=== PATIENT | male | born 1990 | race Caucasian/White ===

== ENCOUNTER 2020-07-20 11:04 | Emergency (ER) | payer OTHER, SELFPAY ==
[2020-07-20 11:13] VITALS: BP 132/64; PULSE 60; RESP 16; TEMP 37.1; O2SAT 100
--- NOTE | 2020-07-20 11:20 | ED.SKABFB ---
HPI - Skin/Abscess/Foreign Bdy General Chief complaint: Skin/Abscess/Foreign Body Stated complaint: rash Time Seen by Provider: 07/20/20 11:20 Source: patient and RN notes reviewed Mode of arrival: ambulatory Limitations: no limitations History of Present Illness HPI narrative: 29-year-old male presents to the [facility] with complaints of a rash. Patient states he has had an itchy rash for a few days, itching worse at night. Has tried multiple [id number] products with no relief. Has been working outside. Denies chest pain or shortness of breath. No tongue or lip swelling. Related Data Allergies Allergy/AdvReac Type Severity Reaction Status Date / Time No Known Allergies Allergy Verified 07/20/20 11:28 Review of Systems Review of Systems: All systems reviewed & are unremarkable except as noted in HPI and below Constitutional: Constitutional: Reports no additional constitutional complaints, Denies chills, Denies fever(s) and Denies weakness Eyes: Eyes: Reports no additional eye complaints ENT: Reports system reviewed and no additional complaints, except as documented, Denies dysphagia, Denies dizziness, Denies epistaxis, Denies nasal congestion and Denies sore throat Cardiovascular: Cardiovascular: Reports no additional cardiovascular complaints and Denies chest pain Respiratory: Respiratory: Reports no additional respiratory complaints, Denies chest congestion, Denies cough, Denies dyspnea and Denies wheezing Gastrointestinal: Gastrointestinal: Reports no additional gastrointestinal complaints, Denies abdominal pain, Denies diarrhea, Denies nausea and Denies vomiting Musculoskeletal: Musculoskeletal: Reports no additional musculoskeletal complaints, Denies back pain, Denies myalgias, Denies arthralgias, Denies joint swelling and Denies muscle cramps Integumentary/Breasts: Skin/Breast: Reports as per HPI and Reports rash (Generalized, insect bites, hives) Neurologic: Reports system reviewed and no additional complaints, except as documented, Denies dizziness, Denies syncope, Denies headache(s), Denies numbness and Denies weakness Psychiatric: Psychiatric: Reports no additional psychiatric complaints Endocrine: Endocrine: Reports no additional endocrine complaints Allergic/Immunologic: Allergic/Immunologic: Reports as per HPI, Denies lip swelling, Denies throat swelling, Denies tongue swelling and Denies wheezing Comments: Hives, insect bites PMFSH Past Medical History Medical History (Updated 07/20/20 @ 17:12 by Madisyn Curtis) Anxiety Depression Narcolepsy Sleep apnea Comments At the time of my signature, I reviewed and agree with the nursing past medical, surgical, social, and family history. There is no relevant family history pertinent to the patient complaint. Exam Const: General: healthy appearing, no acute distress and alert Nutritional Appearance: well nourished Orientation/consciousness: patient oriented x3 Limitations: no limitations HENMT: Head: normal to inspection Ears: external ears normal General nose exam: Normal external nose present, Normal nares present and no nasal discharge noted Face and sinus: normal facial exam Mouth: Yes moist mucous membranes Throat: posterior oropharynx normal and uvula midline Eyes: Conjunctivae: conjunctivae normal Pupils: Equal, round and reactive pupils present Neck: Neck: normal visual inspection, no lymphadenopathy and no meningeal signs Chest: Chest palpation & inspection: normal inspection of the chest Resp: Effort & Inspection: normal respiratory effort and no use of accessory muscles Auscultation: clear to auscultation bilaterally, no crackles, no rales, no rhonchi and no wheezes Cardio: Rate: regular rate Rhythm: regular rhythm GI: GI Palp: Yes Soft to palpation and No Tenderness to palpation present (GI) Back/Spine/Pelvis: Back: no CVA tenderness Skin: Other: Red raised area to the right side of neck, resembles hives. Multiple insect
== END 2020-07-20 11:37 | disposition home or self-care (01) ==
PROVIDERS: Emergency Provider Nurse Practitioner
DX: R21 Rash and other nonspecific skin eruption (principal); L03.221 Cellulitis of neck; S40.862A Insect bite (nonvenomous) of left upper arm, initial encounter; S40.861A Insect bite (nonvenomous) of right upper arm, initial encounter; S80.862A Insect bite (nonvenomous), left lower leg, initial encounter; S80.861A Insect bite (nonvenomous), right lower leg, initial encounter; W57.XXXA Bitten or stung by nonvenomous insect and other nonvenomous arthropods, initial encounter; G47.419 Narcolepsy without cataplexy
CPT/HCPCS: 99213; G0463

== ENCOUNTER 2020-07-26 13:35 | Emergency (ER) | payer OTHER, SELFPAY ==
[2020-07-26 14:06] VITALS: BP 120/59; PULSE 79; RESP 16; TEMP 36.7; O2SAT 99
--- NOTE | 2020-07-26 15:33 | ED.SKABFB ---
HPI - Skin/Abscess/Foreign Bdy General Chief complaint: Skin/Abscess/Foreign Body Stated complaint: bug bites Time Seen by Provider: 07/26/20 15:23 Source: patient Mode of arrival: ambulatory History of Present Illness HPI narrative: 29-year-old with no major medical problems here with complaints of chigger bites on the upper extremity and lower extremity in the lower abdomen patient states that he was at urgent care was given steroids however still persisting and now complains of intense itching. He denies any shortness of breath or fever. MD complaint: insect bite/sting Onset (ago): week(s) (1) Location: LUE, RUE, LLE and RLE Severity: moderate Quality: pruritic Pain Consistency: constant Relieving factors: none Exacerbating factors: none Context: none Associated symptoms: denies other symptoms Treatments prior to arrival: none Related Data Home Medications Medication Instructions Recorded Confirmed bupropion HCl [Wellbutrin XL] 300 mg PO QAM 07/26/20 07/26/20 fluoxetine [Prozac] 40 mg PO DAILY 07/26/20 07/26/20 Allergies Allergy/AdvReac Type Severity Reaction Status Date / Time No Known Allergies Allergy Verified 07/20/20 11:28 Review of Systems Review of Systems: All systems reviewed & are unremarkable except as noted in HPI and below Constitutional: Constitutional: Reports no additional constitutional complaints Eyes: Eyes: Reports no additional eye complaints Cardiovascular: Cardiovascular: Reports no additional cardiovascular complaints Respiratory: Respiratory: Reports no additional respiratory complaints Gastrointestinal: Gastrointestinal: Reports no additional gastrointestinal complaints Musculoskeletal: Musculoskeletal: Reports no additional musculoskeletal complaints Integumentary/Breasts: Skin/Breast: Reports as per HPI PMF Past Medical History Medical History Anxiety Depression Narcolepsy Sleep apnea Social History Social History Gender identity (if verbalized by the patient): Male Exam Narrative: Exam Narrative: GENERAL: Well-appearing, well-nourished, and in no acute distress. HEAD: Normocephalic, atraumatic. EYES: PERRLA and EOMI. NECK: Supple. CHEST: Clear to auscultation. No respiratory distress. HEART: Regular rate and rhythm. No murmur heard. Normal peripheral puls. EXTREMITIES: Normal range of motion. No edema. SKIN: Warm, dry, has multiple bug bites on both upper as well as lower extremities and along the waistline. NEURO: No focal deficits. Alert and oriented x3. PSYCH: Normal mood and affect. Course Course Emergency Course: Patient did finish Medrol Dosepak however he still has rash and it is itching and progressing will start him on high-dose prednisone. Advised him to take Atarax as prescribed for itching. If there is any sign of infection follow-up with his primary doctor. Vital Signs Vital signs: Vital Signs Temperature 36.7 C 07/26/20 14:06 Pulse Rate 79 07/26/20 14:06 Respiratory Rate 16 07/26/20 14:06 Blood Pressure 120/59 L 07/26/20 14:06 Pulse Oximetry 99 07/26/20 14:06 Temperature 36.7 C 07/26/20 14:06 Pulse Rate 79 07/26/20 14:06 Respiratory Rate 16 07/26/20 14:06 Blood Pressure 120/59 L 07/26/20 14:06 Pulse Oximetry 99 07/26/20 14:06 Discharge Plan Discharge Clinical Impression: Insect bites Patient Disposition: Still a Patient Condition: Stable Instructions: Chigger Bite (ED) Additional Instructions: Take medication as was prescribed Prescriptions: New prednisone 20 mg tablet 20 mg PO BID Qty: 14 RF: 0 hydroxyzine pamoate [Vistaril] 25 mg capsule 25 mg PO TID PRN (Reason: nausea and vomiting) Qty: 30 RF: 0 No Action permethrin 5 % cream 1 applic topical ONCE Qty: 60 RF: 0 prednisone 20 mg tablet 20 mg PO DAILY Qty: 7 RF: 0 sulfamethoxazole-trimeth
[2020-07-26] MEDS: predniSONE 20 MG TABLET 60 MG PO (16:18)
== END 2020-07-26 15:57 | disposition home or self-care (01) ==
PROVIDERS: Emergency Provider Family Medicine
DX: B88.0 Other acariasis (principal); F41.9 Anxiety disorder, unspecified; F32.9 Major depressive disorder, single episode, unspecified; G47.30 Sleep apnea, unspecified; G47.419 Narcolepsy without cataplexy
CPT/HCPCS: 99283; J7512

== ENCOUNTER 2024-10-24 18:45 | Emergency (ER) | payer OTHER, SELFPAY ==
--- NOTE | 2024-10-24 18:50 | ECG_ITS ---
Test Date: 2024-10-24 19:05:46 Measurements Intervals [place] Rate: 69 P: 57 SD: 147 QRS: 57 QRSD: 84 T: 46 QT: 338 QTc: 364 Interpretive Statements SINUS RHYTHM WITH SINUS ARRHYTHMIA OTHERWISE NORMAL ECG No previous ECG available for comparison Electronically Signed On 10-25-2024 07:37:44 CDT by Jay Samaoya M.D.
[2024-10-24 19:00] VITALS: BP 160/88; PULSE 94; RESP 16; TEMP 36.6; O2SAT 99
--- NOTE | 2024-10-24 20:00 | ED.GENADULT ---
HPI - General Adult General Chief complaint: Unspecified Stated complaint: Chest Pain Time Seen by Provider: 10/24/24 19:45 Source: patient and RN notes reviewed Mode of arrival: ambulatory Limitations: no limitations History of Present Illness HPI narrative: 33-year-old male presents [facility] complaining of chest. Reports the pain is near his right sternal and of his clavicle near the sternoclavicular joint. Patient said few years ago he had an injury from the to this area. Patient reports clicking and popping in this area states every now and then he gets a flare up that causes pain and sometimes swelling. Patient says he seen orthopedist before was unsure of what it was and they dried cortisone injections without success, the recommended surgery any declined. Patient reports the pain is reproducible special to movements of his lower right arm. Patient denies any falls or injuries. Patient denies any chest pressure, jaw pain, nausea, left arm pain, vomiting dyspnea, difficulty breathing, or any other symptoms. Patient denies any significant past medical history. Related Data Home Medications ?Medication ?Instructions ?Recorded ?Confirmed ?Last Taken ?Type bupropion HCl 300 mg 24 hr tablet, 300 mg PO QAM 07/26/20 07/26/20 Unknown History extended release (Wellbutrin XL) fluoxetine 40 mg capsule (Prozac) 40 mg PO DAILY 07/26/20 07/26/20 Unknown History Allergies Allergy/AdvReac Type Severity Reaction Status Date / Time No Known Allergies Allergy Verified 07/20/20 11:28 Review of Systems Review of Systems: CONSTITUTIONAL: Denies fever, chills, or sweats. EYES: Denies visual changes, redness, or discharge. ENT: Denies rhinorrhea, congestion, sore throat, or otalgia. CARDIOVASCULAR: Denies chest pain, chest pain with exertion, chest pressure, palpitations, or edema. RESPIRATORY: Denies cough or dyspnea. GASTROINTESTINAL: Denies abdominal pain, nausea, vomiting, or diarrhea. GENITOURINARY: Denies dysuria or hematuria. SKIN: Denies rash or itching. MUSCULOSKELETAL: Denies back pain, joint pain, or myalgia. Positive for sternal clavicular pain. NEUROLOGIC: Denies headache, numbness, or weakness. PSYCHIATRIC: Denies anxiety or depression. All other systems reviewed are negative, except as documented in HPI. PMFSH Past Medical History Medical History Sleep apnea Narcolepsy Depression Anxiety Social History Social History Gender identity (if verbalized by the patient): Male Comments At the time of my signature, I reviewed and agree with the nursing past medical, surgical, social, and family history. There is no relevant family history pertinent to the patient complaint. Exam Narrative: GENERAL: This is a well-nourished, well-developed adult, in no apparent distress. They are non ill-appearing, nontoxic appearing. HEAD: normocephalic, atraumatic. EYES: Sclera clear/white. Conjunctiva normal. Vision is grossly intact. Extraocular movements intact EARS: External ears normal, Hearing grossly intact. NOSE: External nose normal THROAT: Mucous membranes moist, NECK: Neck supple, non-tender without lymphadenopathy, masses or thyromegaly. CARDIOVASCULAR: Regular rate and rhythm without murmurs, gallops, or rubs. RESPIRATORY: Clear to auscultation. Breath sounds equal bilaterally. No wheezes, rales, or rhonchi. SKIN: warm, Dry, intact with no suspicious lesions or rash, good texture and turgor. NEURO: awake, alert, and oriented to person, place and time. There were no obvious focal neurologic abnormalities. EXTREMITIES: Right clavicle: Tenderness to palpation to the sternal in the right clavicle near the sternoclavicular joint. No obvious deformity, swelling, redness, bruising, or injury. Positive crowing rooster sign. Pain reproducible to palpation. No tenderness throughout the rest of sternum. Course Course Emergency Course: Portions of this record may have been created with voice recognition software Level of Care: Express Care Visit Vital Signs Vital signs: Vital Signs Temperature 97.9 F 10/24/24 19:00 Pulse Rate 94 10/24/24 19:00 Respiratory Rate 16 10/24/24 19:00 Blood Pressure 160/88 H 10/24/24 19:00 Pulse Oximetry 99 10/24/24 19:00 Temperature 97.9 F 10/24/24 19:00 Pulse Rate 94 10/24/24 19:00 Respiratory Rate 16 10/24/24 19:00 Blood Pressure 160/88 H 10/24/24 19:00 Pulse Oximetry 99 10/24/24 19:00 Reviewed Medical Decision Making MDM Narrative Medical decision making narrative: [place] heart score 0. Pain reproduced to palpation, focal tenderness located near the sternoclavicular joint of the right clavicle. Patient reports chronic issues of this area. Could also be costochondritis. EKG is sinus rhythm with a sinus arrhythmia, no ischemic findings. Low suspicious for any coronary artery disease. Recommend follow-up with PCP orthopedist for further evaluation and management of this chronic issue. Patient may need advanced imaging to further assess joint. Recommend supportive therapy. Discussed physical exam findings. Advised supportive measures and signs/symptoms to go to the ER. Pt is appropriate for outpt treatment and f/u. Differential Diagnosis Differential Diagnosis: Costochondritis, arthritis, sternoclavicular disorder, chest pain, atypical chest pain, acute coronary syndrome Vital Signs Vital Signs: Vital Signs Temperature 97.9 F 10/24/24 19:00 Pulse Rate 94 10/24/24 19:00 Respiratory Rate 16 10/24/24 19:00 Blood Pressure 160/88 H 10/24/24 19:00 Pulse Oximetry 99 10/24/24 19:00 Temperature 97.9 F 10/24/24 19:00 Pulse Rate 94 10/24/24 19:00 Respiratory Rate 16 10/24/24 19:00 Blood Pressure 160/88 H 10/24/24 19:00 Pulse Oximetry 99 10/24/24 19:00 ECG Data EKG #1: Attestation: I personally reviewed and interpreted this ECG as follows: ECG completion date: 10/24/24 ECG completion time: 19:05 Prior ECG tracings: not available for review EKG Interpretation: normal rate, sinus rhythm, no ectopy, normal QRS, normal QT, NL axis and other (Sinus arrhythmia) Critical Care Time Critical Care Time Critical Care Time: No Discharge Plan Discharge Clinical Impression: Pain of right clavicle Patient Disposition: Home Condition: Stable Instructions: Antibiotic Form, Costochondritis (ED) Additional Instructions: Your EKG today shows normal sinus rhythm. This could be costochondritis or flare up of your clavicle sternal joint disorder. You may take ibuprofen 600 mg to 800 mg every 6-8 hours. Do not exceed more than 800 mg of ibuprofen per dose. Do not exceed more than 3200 mg ibuprofen in a day. You may take up to 1000 mg Tylenol every 6-8 hours. Do not exceed 1000 mg per dose, do exceed more than 4000 mg of Tylenol in a day. He may apply ice to the affected area 20 minutes a few times a day to help with swelling. Please follow-up with orthopedist or your PCP in 3-5 days. If you developed any chest pressure, difficulty breathing, nausea, vomiting, or any serious concerns please go to the ER immediately. Patient Language: Mohawk Prescriptions: No Action permethrin 5 % cream 1 applic topical ONCE Qty: 60 0RF Rx Instructions: leave on for 8 to14 hrs before washing off prednisone 20 mg tablet 20 mg PO DAILY Qty: 7 0RF sulfamethoxazole-trimethoprim [Bactrim DS] 800-160 mg tablet 1 tablet PO Q12H Qty: 14 0RF triamcinolone acetonide 0.1 % cream 1 applic topical BID Qty: 30 0RF fluoxetine [Prozac] 40 mg Capsule 40 mg PO DAILY bupropion HCl [Wellbutrin XL] 300 mg Tablet Extended Release 24 Hr 300 mg PO QAM prednisone 20 mg tablet 20 mg PO BID Qty: 14 0RF hydroxyzine pamoate [Vistaril] 25 mg capsule 25 mg PO TID PRN (Reason: nausea and vomiting) Qty: 30 0RF Follow-up/Referrals: Yoni Samson MD [Physician, Orthopedics] PHYSICIAN,LACQUER SPRAYER [Primary Care Provider, Internal Medicine] Time of Disposition: 19:53
== END 2024-10-24 19:55 | disposition home or self-care (01) ==
DX: M25.511 Pain in right shoulder (principal); F41.9 Anxiety disorder, unspecified; F32.A Depression, unspecified
CPT/HCPCS: 93005; 99213; G0463

== ENCOUNTER 2024-11-13 19:34 | Emergency (ER) | payer OTHER, SELFPAY ==
--- NOTE | ~2024-11-13 | XR_ITS ---
Examination: XR chest 2V Clinical History: difficulty breathing Comparison: None Technique: PA and Lateral Findings: Cardiomediastinal silhouette normal size and configuration. Lungs clear. No acute bony abnormality. IMPRESSION: 1. No acute cardiopulmonary findings. Reviewed, dictated and finalized at location R.
--- OUTSIDE RECORDS SUMMARY | 2024-11-13 19:36 | XMS_ITS | Encounter Summary ---
Author Organization [facility] Address [address] [place] [id number] Care Team Providers Care J2Ee Java Developer Name Role Phone Marilu Maurice NP Primary Care Provider [phone] Encounter Details Date Type Department Care Team (Late st Contact Info) Description 03/08/2024 [place] Message Enc [facility] Multispecialty [facility] - [place] 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 Gender Identity Not on file Sexual Orientation Not on file documented as of this encounter Plan of Treatment Not on file documented as of this encounter Visit Diagnoses Not on filedocumented in this encounter Additional Health Concerns Assessment Noted Time PHQ-9 Depression Total Score: 7 12/24/19 24 2:30 PM CATERING CONVENTION SERVICES MANAGER documented as of this encounter Care Teams J2Ee Java Developer Relationship Specialty Start Date End Date Marilu Maurice, WEB SITE DESIGNER [address] [place], [place] [id number] PCP - General NURSE PRACTITIONER 12/24/23 documented as of this encounter
--- OUTSIDE RECORDS SUMMARY | 2024-11-13 19:36 | XMS_ITS | Encounter Summary ---
Author Organization [facility] Address [address] [place] [id number] Care Team Providers Care District Manager Primary Care Sales Name Role Phone Marilu Maurice NP Primary Care Provider [phone]- [phone] Encounter Details Date Type Department Care Team (Late st Contact Info) Description 03/09/2024 [place] Message Enc [facility] Medical [facility] Multispecialty [facility] - [place] 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
--- NOTE | 2024-11-13 20:04 | ECG_ITS ---
Test Date: 2024-11-13 20:09:49 Measurements Intervals [place] Rate: 74 P: 0 [place]: 0 QRS: 36 QRSD: 89 T: 47 QT: 334 QTc: 372 Interpretive Statements SINUS RHYTHM WITH ATRIAL PREMATURE COMPLEX CONSIDER ANTERIOR INFARCT, AGE INDETERMINATE BASELINE ARTIFACT- I, II, III, AVR, AVL, AVF, V1, V4-V6 ABNORMAL ECG Compared to ECG 10/24/2024 19:05:46 NO SIGNIFICANT CHANGE Electronically Signed On 11-14-2024 06:10:14 CDT by Saleem Duvall D.O.
[2024-11-13 20:05] VITALS: BP 151/94; PULSE 80; RESP 16; TEMP 36.9; O2SAT 99
[2024-11-13 20:27] LABS: Hematocrit 40.5 % (42.0-52.0); Hemoglobin 14.1 g/dL (14.0-18.0); Immature Granulocyte Percent A 0.1 % (0-0.5); Lymphocytes Absolute Auto 3.49 K/mm3 (0.9-3.2); Mean Corpuscular HGB Conc 34.8 g/dl (32-36); Mean Corpuscular Hemoglobin 30.3 pg (26-34); Mean Corpuscular Volume 87.1 fl (80-100); Nucleated Red Blood Cells Absolute Auto 0.000 K/mm3 (0.0-0.012); Nucleated Red Blood Cells Perc 0.0 % (0.0-0.2); Platelet Count Result 264 k/mm3 (150-375); Red Blood Count 4.65 M/mm3 (4.6-6.20); White Blood Count 10.3 K/mm3 (4.5-10.0)
[2024-11-13 20:39] LABS: Alanine Aminotransferase 22 U/L (6-50); Albumin Level 4.9 g/dL (3.5-5.1); Alkaline Phosphatase 56 U/L (38-126); Anion Gap 11 mmol/L (4-12); Aspartate Amino Transferase 35 U/L (17-59); Bilirubin,Total 0.4 mg/dL (0.2-1.3); Blood Urea Nitrogen 31 mg/dL (9-20); Calcium 9.4 mg/dL (8.4-10.2); Carbon Dioxide 24 mmol/L (22-30); Chloride 104 mmol/L (98-107); Estimated CRCL calculation 105 ml/min; Estimated Glomerular Filt Rate > 60; Glucose 92 mg/dL (65-110); Potassium 4.2 mmol/L (3.4-5.0); Sodium 139 mmol/L (137-145); Total Protein 8.6 g/dL (6.3-8.2)
[2024-11-13 23:08] VITALS: BP 137/84; PULSE 69; PULSE 70; RESP 21; O2SAT 98
[2024-11-13 23:30] VITALS: O2SAT 100
[2024-11-14 00:21] VITALS: BP 142/80; PULSE 81; RESP 16; O2SAT 100
--- NOTE | 2024-11-14 01:03 | ED.SOB ---
HPI - SOB/Dyspnea General Chief Complaint: Shortness of Breath/Dyspnea Stated Complaint: SOB / CP Time Seen by Provider: 11/14/24 00:26 Source: patient Mode of arrival: ambulatory Limitations: no limitations History of Present Illness HPI Narrative: This is a 33 year old male that presents to the ER for shortness of breath. Ongoing over the last couple of days. Reports upper chest pain. Reports a mild cough. Denies fever. Related Data Home Medications ?Medication ?Instructions ?Recorded ?Confirmed ?Last Taken ?Type bupropion HCl 300 mg 24 hr tablet, 300 mg PO QAM 07/26/20 07/26/20 Unknown History extended release (Wellbutrin XL) fluoxetine 40 mg capsule (Prozac) 40 mg PO DAILY 07/26/20 07/26/20 Unknown History tadalafil 5 mg tablet (Cialis) 5 mg PO DAILY 11/13/24 11/13/24 Unknown History Allergies Allergy/AdvReac Type Severity Reaction Status Date / Time Penicillins Allergy Unknown Unknown Verified 11/13/24 20:08 Review of Systems Review of Systems: All systems reviewed & are unremarkable except as noted in HPI and below PMFSH Past Medical History Medical History Sleep apnea Narcolepsy Depression Anxiety Social History Social History Gender identity (if verbalized by the patient): Male Exam Narrative: GENERAL: Well-appearing, well-nourished, and in no acute distress. HEAD: Normocephalic, atraumatic. EYES: EOMI. NECK: Supple. No JVD CHEST: Clear to auscultation. No respiratory distress. No wheezes rales or rhonchi HEART: Regular rate and rhythm. No murmur heard. Normal peripheral pulses. EXTREMITIES: Normal range of motion. No edema. SKIN: Warm, dry, no rash. NEURO: No focal deficits. Alert and oriented x3. PSYCH: Normal mood and affect Course Vital Signs Vital signs: Vital Signs Temperature 98.5 F 11/13/24 20:05 Pulse Rate 80 11/13/24 20:05 Respiratory Rate 16 11/13/24 20:05 Blood Pressure 151/94 H 11/13/24 20:05 Pulse Oximetry 99 11/13/24 20:05 Oxygen Delivery Room Air 11/13/24 20:05 Temperature 98.5 F 11/13/24 20:05 Pulse Rate 81 11/14/24 00:21 Respiratory Rate 16 11/14/24 00:21 Blood Pressure 142/80 H 11/14/24 00:21 Pulse Oximetry 100 11/14/24 00:21 Oxygen Delivery Room Air 11/13/24 23:30 MDM - SOB/Dyspnea MDM Narrative Medical decision making narrative: Patient presents to the emergency department for shortness of breast, reports associated chest pain. He is afebrile and nontoxic appearing. His vitals are stable. CBC with mild leukocytosis to 10.3. Hemoglobin is normal. Metabolic panel without concerning findings. EKG without acute ST changes, baseline troponin is negative. D-dimer is not elevated. Chest x-ray without acute cardiopulmonary abnormality. Patient updated on his workup and agrees with plan of care. He is to follow up with primary provider. He was given warnings to return to the ER Differential Diagnosis Differential diagnosis: Likely community acquired pneumonia, asthma with exacerbation and pulmonary embolism Lab Data Attestation: I reviewed the patient's lab results. 11/13/24 20:21 11/13/24 20:21 Labs: Lab Results 11/13/24 Range/Units 20:21 WBC 10.3 H (4.5-10.0) K/mm3 RBC 4.65 (4.6-6.20) M/mm3 Hgb 14.1 (14.0-18.0) g/dL Hct 40.5 L (42.0-52.0) % MCV 87.1 (80-100) fl MCH 30.3 (26-34) pg MCHC 34.8 (32-36) g/dl RDW 12.2 (11.5-14.5) % Plt Count 264 (150-375) k/mm3 MPV 10.3 (7.4-10.4) fl Immature Gran % (Auto) 0.1 (0-0.5) % Neut % (Auto) 51.9 (45.5-73.1) % Lymph % (Auto) 33.9 (18.3-44.2) % [place] % (Auto) 9.7 H (2.6-8.5) % Eos % (Auto) 3.8 (0-4.4) % Baso % (Auto) 0.6 (0.2-1.2) % Lymph # (Auto) 3.49 H (0.9-3.2) K/mm3 [place] # (Auto) 1.0 H (0.1-0.6) K/mm3 Eos # (Auto) 0.4 H (0-0.3) K/mm3 Baso # (Auto) 0.1 (0.0-0.1) K/mm3 Abs Immat Gran (auto) 0.01 (0.00-0.031) K/mm3 Absolute Neuts (auto) 5.3 (1.3-6.7) K/mm3 Absolute Nucleated RBC 0.000 (0.0-0.012) K/mm3 Nucleated RBC % 0.0 (0.0-0.2) % D-Dimer < 0.27 (<0.48) ug/mL Sodium 139 (137-145) mmol/L Potassium 4.2 (3.4-5.0) mmol/L Chloride 104 (98-107) mmol/L Carbon Dioxide 24 (22-30) mmol/L Anion Gap 11 (4-12) mmol/L BUN 31 H (9-20) mg/dL Creatinine 0.96 (0.7-1.3) mg/dL Estim Creat Clear Calc 105 ml/min Estimated GFR > 60 (59 - ) Glucose 92 (65-110) mg/dL Calcium 9.4 (8.4-10.2) mg/dL Total Bilirubin 0.4 (0.2-1.3) mg/dL AST 35 (17-59) U/L ALT 22 (6-50) U/L Alkaline Phosphatase 56 (38-126) U/L Troponin I < 0.012 (0.000-0.034) ng/mL Total Protein 8.6 H (6.3-8.2) g/dL Albumin 4.9 (3.5-5.1) g/dL Imaging Data Radiologist's impression: ITS Impressions Chest X-Ray 11/13/24 20:50 IMPRESSION: 1. No acute cardiopulmonary findings. ECG Data EKG #1: ECG completion date: 11/13/24 EKG Interpretation: normal rate, sinus rhythm, no ST changes and normal QT Critical Care Time Critical Care Time Critical Care Time: No Discharge Plan Discharge Clinical Impression: Shortness of breath Patient Disposition: Home Condition: Stable Instructions: Shortness of Breath (ED) Additional Instructions: Return to the Emergency Department if you experience fever, worsening chest pain, shortness of breath, or any other symptoms that are concerning to you Follow up with primary care doctor Patient Language: Japanese Prescriptions: No Action permethrin 5 % cream 1 applic topical ONCE Qty: 60 0RF Rx Instructions: leave on for 8 to14 hrs before washing off prednisone 20 mg tablet 20 mg PO DAILY Qty: 7 0RF sulfamethoxazole-trimethoprim [Bactrim DS] 800-160 mg tablet 1 tablet PO Q12H Qty: 14 0RF triamcinolone acetonide 0.1 % cream 1 applic topical BID Qty: 30 0RF tadalafil [Cialis] 5 mg tablet 5 mg PO DAILY fluoxetine [Prozac] 40 mg Capsule 40 mg PO DAILY bupropion HCl [Wellbutrin XL] 300 mg Tablet Extended Release 24 Hr 300 mg PO QAM prednisone 20 mg tablet 20 mg PO BID Qty: 14 0RF hydroxyzine pamoate [Vistaril] 25 mg capsule 25 mg PO TID PRN (Reason: nausea and vomiting) Qty: 30 0RF Follow-up/Referrals: Ariel Marr MD [Physician, Family Practice] PHYSICIAN,COMMUNITY RELATIONS SPECIALIST [Primary Care Provider, Internal Medicine]
[2024-11-14 01:52] LABS: Troponin I < 0.012 ng/mL (0.000-0.034)
== END 2024-11-14 03:05 | disposition home or self-care (01) ==
PROVIDERS: Emergency Medicine; Emergency Provider Physician Assistant
DX: R06.02 Shortness of breath (principal); G47.30 Sleep apnea, unspecified; F41.9 Anxiety disorder, unspecified; F32.A Depression, unspecified; Z79.899 Other long term (current) drug therapy; R94.31 Abnormal electrocardiogram [ECG] [EKG]
CPT/HCPCS: 36415; 71046; 80053; 84484; 85025; 85380; 93005; 99284